=== PATIENT | female | born 1975 | race Caucasian/White ===

== ENCOUNTER 2021-01-04 00:47 | Inpatient (IN) | payer MEDICAID ==
[~2021-01-04] VITALS: Ht 162.6 cm; Wt 87.5 kg
[2021-01-04] MEDS ORDERED: IBUPROFEN 600MG TABLET PO STA (00:58)
[2021-01-04] MEDS ORDERED: PIPERACILLIN/TAZ 3.375G PREMIX 50 ML IV ONE (01:00)
[2021-01-04] MEDS ORDERED: SODIUM CHLORIDE 0.9% 1000ML BAG (SEPSIS BOLUS) IV ONE (01:00)
[2021-01-04] MEDS ORDERED: VANCOMYCIN 1 G PREMIX 200 ML IV ONE (01:00)
[2021-01-04 01:53] LABS: CLARITY URINE CLEAR (CLEAR); COLOR URINE YELLOW (YELLOW); KETONES URINE NEGATIVE (NEGATIVE); LEUKOCYTE ESTERASE URINE NEGATIVE (NEGATIVE); NITRITE URINE NEGATIVE (NEGATIVE); OCCULT BLOOD URINE 1+ (NEGATIVE); PROTEIN URINE TRACE (NEGATIVE); SPECIFIC GRAVITY URINE 1.023 (1.005-1.030); UROBILINOGEN URINE 0.2 E.U./dL (0.2-1.0)
[2021-01-04 02:06] LABS: HEMOGLOBIN. 11.1 g/dL (12.0-16.0); MEAN CORPUSCULAR VOLUME 82.2 fL (81.0-99.0); PLATELET 197 x1000/uL (130-400); RED BLOOD CELL COUNT 4.13 mill/uL (4.2-5.4); RED CELL DISTRIBUTION WIDTH 15.4 % (11.6-14.6)
[2021-01-04 02:16] LABS: CHLORIDE 108 mEq/L (98-107)
[2021-01-04 02:20] LABS: INR 1.1
[2021-01-04 02:23] LABS: BETA HYDROXYBUTYRATE 0.7 mMol/L (0.0-0.3)
[2021-01-04] MEDS ORDERED: POTASSIUM CHLORIDE INJ 40 MEQ in DEXT 5% WATER 250 ML IV NR (03:00)
[2021-01-04 03:01] LABS: PLATELET ESTIMATE NORMAL
[2021-01-04] MEDS ORDERED: NOREPINEPHRINE 8MG/250ML PMX 250ML IV PRN (04:30)
[2021-01-04] MEDS ORDERED: CLONIDINE 0.1MG TABLET PO PRN (06:45)
[2021-01-04] MEDS ORDERED: ONDANSETRON HCL 4MG/2ML INJ IV PRN (06:45)
[2021-01-04] MEDS ORDERED: NALOXONE HCL 0.4MG/ML VIAL IV PRN (07:00)
[2021-01-04] MEDS: SODIUM CHLORIDE 0.9% 1,000 ML IV SCH ×2 (07:14→18:34)
[2021-01-04] MEDS: BLOOD SUGAR DIAGNOSTIC STRIP TEST SCH ×4 (08:00→22:40)
[2021-01-04] MEDS ORDERED: DEXTROSE 50% WATER 50ML SYRINGE IV PRN (08:00)
[2021-01-04] MEDS ORDERED: MAGNESIUM/ALUMINUM HYDROXIDE/SIMETHICONE 30ML UDC PO PRN (09:00)
[2021-01-04] MEDS: ENOXAPARIN 40MG/0.4ML SYR SUBCUT SCH (09:35)
[2021-01-04] MEDS: INSULIN LISPRO 100 UNITS/ML SUBCUT SCH ×4 (09:37→22:43)
[2021-01-04] MEDS ORDERED: PIPERACILLIN/TAZOBACTAM 3.375 G in DEXTROSE 5% WATER 50 ML IV SCH (10:00)
[2021-01-04] MEDS: INSULIN GLARGINE UD 100 UNITS/ML SYR SUBCUT SCH (10:24)
[2021-01-04] MEDS: MIDODRINE HCL 5MG TABLET PO SCH ×2 (12:09→18:00)
[2021-01-04 16:59] LABS: CHLORIDE 119 mEq/L (98-107)
[2021-01-04] MEDS: PIPERACILLIN/TAZOBACTAM 3.375G in DEXT 5% WATER 50ML IV SCH ×2 (18:33→23:20)
[2021-01-04 22:20] VITALS: BP 112/55
[2021-01-04] MEDS: HYDROCODONE/ACETAMINOPHEN 5/325MG TABLET PO PRN (22:31)
[2021-01-04] MEDS ORDERED: METF-416 MT (23:12)
[2021-01-04] MEDS ORDERED: SUMA50TA16 MT (23:12)
[2021-01-04] MEDS ORDERED: ATOR20TA65 MT (23:12)
[2021-01-04] MEDS ORDERED: LISI20TA31 MT (23:12)
[2021-01-04] MEDS ORDERED: IBUP-2029 MT (23:12)
[2021-01-05 00:30] VITALS: BP 110/66
[2021-01-05] MEDS: ACETAMINOPHEN 325MG TABLET PO PRN ×2 (00:42→16:59)
[2021-01-05] MEDS: SODIUM CHLORIDE 0.9% 1,000 ML IV SCH ×3 (03:20→20:44)
[2021-01-05 04:07] VITALS: BP 102/60
[2021-01-05] MEDS: PIPERACILLIN/TAZOBACTAM 3.375G in DEXT 5% WATER 50ML IV SCH ×4 (05:55→23:09)
[2021-01-05] MEDS: BLOOD SUGAR DIAGNOSTIC STRIP TEST SCH ×4 (06:21→20:25)
[2021-01-05] MEDS ORDERED: PNEUMOCOCCAL 23-VAL P-SAC VAC 0.5 ML IM ONE (08:00)
[2021-01-05 08:12] VITALS: BP 131/68
[2021-01-05] MEDS: INSULIN LISPRO 100 UNITS/ML SUBCUT SCH ×4 (08:24→20:41)
[2021-01-05 09:40] LABS: BASOPHILS % 0.3 % (0.0-2.0); EOSINOPHILS % 0.1 % (0.0-5.0); HEMATOCRIT. 28.9 % (36.0-48.0); HEMOGLOBIN. 9.8 g/dL (12.0-16.0); LYMPHOCYTES % 18.1 % (20.0-50.0); MEAN CORPUSCULAR HEMOGLOBIN 27.7 pg (28.0-32.0); MEAN CORPUSCULAR VOLUME 81.9 fL (81.0-99.0); MONOCYTES % 5.5 % (2.0-8.0); PLATELET 151 x1000/uL (130-400); RED BLOOD CELL COUNT 3.52 mill/uL (4.2-5.4); RED CELL DISTRIBUTION WIDTH 15.8 % (11.6-14.6)
[2021-01-05 09:48] LABS: CHLORIDE 116 mEq/L (98-107)
[2021-01-05] MEDS: INSULIN GLARGINE UD 100 UNITS/ML SYR SUBCUT SCH (10:32)
[2021-01-05] MEDS: ENOXAPARIN 40MG/0.4ML SYR SUBCUT SCH (10:35)
[2021-01-05 12:14] VITALS: BP 109/67
[2021-01-05] MEDS: MIDODRINE HCL 2.5MG TABLET PO SCH ×2 (13:33→16:53)
[2021-01-05 15:47] VITALS: BP 120/69
[2021-01-05 17:38] LABS: UCG SCREEN NEGATIVE
[2021-01-05 20:15] VITALS: BP 105/54
[2021-01-06 00:17] VITALS: BP 105/49
[2021-01-06 04:30] VITALS: BP 127/60
[2021-01-06] MEDS: PIPERACILLIN/TAZOBACTAM 3.375G in DEXT 5% WATER 50ML IV SCH (05:28)
[2021-01-06] MEDS: HYDROCODONE/ACETAMINOPHEN 5/325MG TABLET PO PRN ×2 (05:29→21:15)
[2021-01-06] MEDS: BLOOD SUGAR DIAGNOSTIC STRIP TEST SCH ×4 (06:26→21:05)
[2021-01-06 08:00] VITALS: BP 131/71
[2021-01-06] MEDS: ENOXAPARIN 40MG/0.4ML SYR SUBCUT SCH (08:24)
[2021-01-06] MEDS: MIDODRINE HCL 2.5MG TABLET PO SCH ×3 (08:24→17:00)
[2021-01-06] MEDS: INSULIN LISPRO 100 UNITS/ML SUBCUT SCH ×4 (08:25→21:16)
[2021-01-06] MEDS: SODIUM CHLORIDE 0.9% 1,000 ML IV SCH ×2 (08:28→18:29)
[2021-01-06] MEDS: LEVOFLOXACIN 500MG PREMIX 100 ML IV SCH (10:51)
[2021-01-06] MEDS: INSULIN GLARGINE UD 100 UNITS/ML SYR SUBCUT SCH (10:53)
[2021-01-06 12:00] VITALS: BP 136/76
[2021-01-06 16:00] VITALS: BP 171/98
[2021-01-06 20:30] VITALS: BP 129/77
[2021-01-07 00:30] VITALS: BP 141/85
[2021-01-07 04:30] VITALS: BP 135/78
[2021-01-07] MEDS: SODIUM CHLORIDE 0.9% 1,000 ML IV SCH ×2 (05:00→15:00)
[2021-01-07] MEDS: BLOOD SUGAR DIAGNOSTIC STRIP TEST SCH ×2 (06:27→12:21)
[2021-01-07] MEDS: INSULIN LISPRO 100 UNITS/ML SUBCUT SCH ×2 (07:16→12:36)
[2021-01-07 08:00] VITALS: BP 157/95
[2021-01-07] MEDS: MIDODRINE HCL 2.5MG TABLET PO SCH ×2 (09:00→13:00)
[2021-01-07] MEDS: LEVOFLOXACIN 500MG PREMIX 100 ML IV SCH (09:07)
[2021-01-07] MEDS: ENOXAPARIN 40MG/0.4ML SYR SUBCUT SCH (09:07)
[2021-01-07] MEDS: INSULIN GLARGINE UD 100 UNITS/ML SYR SUBCUT SCH (10:36)
[2021-01-07 12:00] VITALS: BP 154/84
[2021-01-07 15:15] VITALS: BP 148/75
[2021-01-08] MEDS ORDERED: LEVOFLOXACIN 500MG TABLET PO SCH (11:00)
== END 2021-01-07 15:40 | disposition home health service (06) | DRG 720 ==
LOC: ER 01:07 → MICUSO 03:33 → EDBEDREQ 03:38 → EDBEDREQTM 03:38 → CVICU 10:22 → MICUSO 11:26 → 6WST 20:24 → CANBEDREQ 01-05 16:25
PROVIDERS: ADMIT Hospitalist; ATTEND Hospitalist
DX: A41.59 Other Gram-negative sepsis (principal); E11.65 Type 2 diabetes mellitus with hyperglycemia; N39.0 Urinary tract infection, site not specified; I10 Essential (primary) hypertension; Z20.822 Contact with and (suspected) exposure to COVID-19
CPT/HCPCS: 36415; 71045; 80048; 80053; 81003; 81025; 82010; 82962; 83036; 83605; 83880; 84145; 84484; 85025; 87077; 87186; 87426; 87804; 90732; 93005; 93970; 99291; C1893; J1650; J1815; J1956; J2543; J3370; J3480; J3490; J7030; J7060